=== PATIENT | female | born 1995 | race Caucasian/White ===

== ENCOUNTER 2017-01-27 02:38 | Emergency (ER) | payer BC, OTHER ==
[2017-01-27 02:59] LABS: Urine Bilirubin Negative (NEGATIVE); Urine Blood Negative /ul (NEGATIVE); Urine Ketone Negative (NEGATIVE); Urine Nitrite Negative (NEGATIVE); Urine Protein Negative (NEGATIVE); Urine Specific Gravity >=1.030 SP.GR. (1.005-1.010); Urine Urobilinogen Normal (NORMAL)
[2017-01-27 03:09] LABS: Urine Appearance Clear; Urine Bacteria 3+; Urine Color Yellow; Urine RBC None Seen /hpf (0-5); Urine WBC 0-5 /hpf (0-5)
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
[2017-01-27] MEDS ORDERED: NITROFURANTOIN/NITROFURAN MAC 100 MG CAPSULE ONE (03:19)
[2017-01-27] MEDS: ACETAMINOPHEN 500 MG TABLET PO ONE (03:21)
[2017-01-27] MEDS: NITROFURANTOIN/NITROFURAN MAC 100 MG CAPSULE PO ONE (03:24)
[2017-01-27 03:28] VITALS: BP 139/72
[2017-01-27] MEDS ORDERED: NITROFURANTOIN/NITROFURAN MAC 100 MG CAPSULE PO SCH (09:00)
== END 2017-01-27 03:25 | disposition home or self-care (01) ==
LOC: ER 02:38
DX: O23.42 Unspecified infection of urinary tract in pregnancy, second trimester (principal); Z87.891 Personal history of nicotine dependence; M54.5 Low back pain; Z3A.13 13 weeks gestation of pregnancy